=== PATIENT | female | born 1995 | race African-American/Black ===

== ENCOUNTER 2020-02-11 10:52 | Emergency (ER) | payer SELFPAY ==
[~2020-02-11] VITALS: Ht 162.6 cm; Wt 105.7 kg
--- NOTE | 2020-02-11 11:05 | NUR ---
pt came to ER with c/o vaginal itching, and noted yellow discharges on and off x 2 months. no fever. no c/o abdominal pain. no dysuria. awaiting for MD shanks
--- NOTE | 2020-02-11 11:06 | NUR ---
urine sample collected and sent to lab
[2020-02-11 11:41] LABS: COLOR,URINE YELLOW (YELLOW)
[2020-02-11 11:42] LABS: BILIRUBIN,URINE NEG (NEGATIVE); BLOOD, URINE TRACE Ery/uL (NEGATIVE); PROTEIN,URINE NEG (NEGATIVE); UGLUCOSE NEG (NEGATIVE); UROBILINOGEN,URINE 0.2 EU/dL (0.2)
[2020-02-11 11:43] LABS: LEUKOCYTE ESTERASE ,URINE NEG (NEGATIVE); NITRITE, URINE NEG (NEGATIVE)
[2020-02-11 11:48] LABS: BACTERIA,URINE 1+ /HPF (None Seen); SQUAMOUS EPITHELIAL CELL,UR Many /HPF (None Seen)
[2020-02-11 12:15] VITALS: BP 142/83
--- NOTE | 2020-02-11 12:15 | NUR ---
Patient discharged to home in stable condition. Written and verbal after care instructions given. Patient verbalizes understanding of instruction.
== END 2020-02-11 12:16 | disposition home or self-care (01) ==
LOC: ER 10:56
DX: B37.3 Candidiasis of vulva and vagina (principal); N39.0 Urinary tract infection, site not specified; E66.01 Morbid (severe) obesity due to excess calories; Z68.41 Body mass index [BMI] 40.0-44.9, adult; Z88.0 Allergy status to penicillin
CPT/HCPCS: 81000-TC; 82962-TC; 84703-TC; 87086-TC